=== PATIENT | male | born 2000 | race African-American/Black ===

== ENCOUNTER 2020-09-09 10:30 | Emergency (ER) | payer OTHER, MEDICAID ==
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
--- NOTE | 2020-09-09 11:03 | CR ---
Indication: Injury and pain Technique: Left wrist 3 view Comparison: None Findings: Bones: Alignment is normal. No fractures or bone lesions. Joint spaces: Unremarkable. Soft tissues: Unremarkable. Impression: No sign of acute injury in the left wrist. Dictated by Neo Meredith MD @ Sep 09 2020 11:00AM Signed by Dr. Neo Meredith @ Sep 09 2020 11:01AM
== END 2020-09-09 11:08 | disposition home or self-care (01) ==
LOC: MW.ED 10:30
DX: S60.212A Contusion of left wrist, initial encounter (principal); V43.52XA Car driver injured in collision with other type car in traffic accident, initial encounter
CPT/HCPCS: 73110-26-LT; 73110-LT; 99283; 99284